=== PATIENT | female | born 1980 | race Caucasian/White ===

== ENCOUNTER 2021-06-13 07:56 | Outpatient (RCR) | payer BC, SELFPAY ==
[2021-06-13] MEDS: ACETAMINOPHEN 325 MG TABLET 650 MG PO (14:37)
[2021-06-13] MEDS: FAMOTIDINE 20 MG TABLET PO (14:37)
[2021-06-13] MEDS: diphenhydrAMINE HCl CAP 25 MG CAPSULE PO (14:38)
[2021-06-13 14:41] VITALS: BP 131/81; PULSE 77; RESP 20; TEMP 36.5; O2SAT 99
[2021-06-13 15:42] VITALS: BP 130/75; PULSE 81; RESP 20; TEMP 36.6; O2SAT 99
== END 2021-06-13 17:00 ==
LOC: AMCINF 07:56
PROVIDERS: PCP Physician Assistant; Visit Provider Internal Medicine Hematology & Oncology
DX: U07.1 COVID-19 (principal)
CPT/HCPCS: A9270; M0243; Q0244

== ENCOUNTER 2022-04-27 15:27 | Emergency (ER) | payer BC, SELFPAY ==
--- NOTE | ~2022-04-27 | XR_ITS ---
XR foot LT min 3V 04/27/2022 15:59 Indication: Left foot and toe pain Procedure: 4 views left foot Comparison: No prior studies for comparison. Findings: There is anatomic alignment. 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 No ac [place] fracture or traumatic malalignment. Lisfranc joint intact. No foreign bodies. Impression: 1: No acute fracture. Reviewed, dictated and finalized at location A. PRESSER Impression: 1: No acute fracture.
[2022-04-27 15:37] VITALS: BP 127/79; PULSE 78; RESP 18; TEMP 36.4; O2SAT 100
--- NOTE | 2022-04-27 16:15 | ED.LOWEXIN ---
HPI - Extremity Injury (Lower) General Chief Complaint: Extremity Injury, Lower Stated Complaint: Lt Ankle Pain Time Seen by Provider: 04/27/22 16:02 Source: patient Mode of arrival: ambulatory Limitations: no limitations History of Present Illness HPI Narrative: Patient presents today with a left foot injury. I week ago when she was sitting on the floor in her home when her foot fell asleep. She went to stand and the foot folded underneath her, she stood on it, injuring it. she has been wrapping, icing, and elevating the foot. She has also been taking ibuprofen with some relief. She does report burning pain to the left 3rd through 5th toes and states she has decreased range of motion in these toes as well. Denies numbness or tingling. Related Data Home Medications Medication Instructions Recorded Confirmed Adderall XR 20 mg PO DAILY 06/13/21 04/27/22 Wellbutrin 300 mg BYMOUTH DAILY 06/13/21 04/27/22 metoprolol succinate 25 mg PO BID 06/13/21 04/27/22 cetirizine 5 mg tablet 5 mg DAILY 04/27/22 04/27/22 Allergies Allergy/AdvReac Type Severity Reaction Status Date / Time mushroom Allergy Vomiting Verified 04/27/22 15:42 dicloxacillin AdvReac Unknown Verified 04/27/22 15:42 Review of Systems Review of Systems: CONSTITUTIONAL: Denies body aches, fever, chills, or sweats. EYES: Denies visual changes, redness, or discharge. ENT: Denies rhinorrhea, congestion, sore throat, or otalgia. CARDIOVASCULAR: Denies chest pain, palpitations, or edema. RESPIRATORY: Denies cough or dyspnea. GASTROINTESTINAL: Denies abdominal pain, nausea, vomiting, or diarrhea. GENITOURINARY: Denies dysuria or hematuria. SKIN: Denies rash, itching, or wounds. MUSCULOSKELETAL: Denies back pain, or myalgia.+ Left foot injury NEUROLOGIC: Denies headache, numbness, tingling. + toe weakness PSYCH: Denies depression or anxiety. PMFSH Comments At time of signature, I have reviewed and agree with nursing past medical, surgical, social and family history unless otherwise noted. Please see nursing chart for further information. There is no relevant family history pertinent to the presenting complaint Exam Narrative: GENERAL: Well-appearing, well-nourished, and in no acute distress. HEAD: Normocephalic, atraumatic. EYES: EOMI. No redness or drainage. Conjunctivae normal. ENT: Mucous membranes pink and moist. NECK: Normal AROM. CHEST: No respiratory distress. EXTREMITIES: left foot: Tenderness along the distal 2nd and 3rd metatarsals. Distal sensation intact in all 5 toes. Capillary refill normal. Pupils normal. Significantly decreased range of motion and strength and toes 3 through 5. SKIN: Warm, dry, no rash. Capillary refill normal. Normal skin turgor. NEURO: No focal deficits. Alert and oriented x3. Gait steady. PSYCH: Normal affect. No signs of depression or anxiety. Course Course Level of Care: Express Care Visit Vital Signs Vital signs: Vital Signs Temperature 97.6 F 04/27/22 15:37 Pulse Rate 78 04/27/22 15:37 Respiratory Rate 18 04/27/22 15:37 Blood Pressure 127/79 04/27/22 15:37 Pulse Oximetry 100 04/27/22 15:37 Oxygen Delivery Room Air 04/27/22 15:37 Temperature 97.6 F 04/27/22 15:37 Pulse Rate 78 04/27/22 15:37 Respiratory Rate 18 04/27/22 15:37 Blood Pressure 127/79 04/27/22 15:37 Pulse Oximetry 100 04/27/22 15:37 Oxygen Delivery Room Air 04/27/22 15:37 Reviewed. Pt has been instructed to follow up with her PCP regarding her elevated blood pressure today. MDM - Extremity Injury (Lower) Differential Diagnosis Differential diagnosis: Likely other ( Foot fracture, foot strain, tendon injury) Imaging Data Radiologist's impression: ITS Impressions Foot X-Ray 04/27/22 16:03 Impression: 1: No acute fracture. Critical Care Time Critical Care Time Critical Care Time: No Discharge Plan Discharge Clinical Impression: Strain of foot, left
== END 2022-04-27 16:25 | disposition home or self-care (01) ==
PROVIDERS: Emergency Provider Nurse Practitioner; PCP Internal Medicine
DX: S96.912A Strain of unspecified muscle and tendon at ankle and foot level, left foot, initial encounter (principal); T14.90XA Injury, unspecified, initial encounter
CPT/HCPCS: 73630; 99213; G0463

== ENCOUNTER → 2023-01-24 08:44 | Outpatient (CLI) | payer BC, SELFPAY ==
--- NOTE | ~2023-01-24 | MMUS_ITS ---
EXAMINATION: MM diagnostic radha BI w kath, US breast BI limited HISTORY: Palpable lumps in the upper outer quadrants of the breasts TECHNIQUE: Craniocaudal, mediolateral, and mediolateral oblique 3-D tomosynthesis images of the rebecca ts were performed and synthetic 2-D images were generated. CAD analysis was submitted and interpreted . High resolution limited bilateral breast ultrasound was performed. COMPARISON: None, baseline BREAST PARENCHYMAL COMPOSITION: The breasts are heterogeneously dense, which may obscure small masses . FINDINGS: MAMMOGRAPHIC FINDINGS: Right breast: There is an approximately 3.8 cm obscured, oval, equal density mass in the middle third of the upper outer quadrant of the breast at the 10:00 location 5 cm from the nipple corresponding t o the palpable abnormality of concern. A 12 mm mass with similar sonographic features is seen just an teriorly at the 10:00 location 3.5 cm from the nipple. No suspicious calcification or architectural d istortion are identified. Left breast: There is a 1.5 cm oval, obscured, equal density mass in the anterior third of the upper outer quadrant of the breast at the 2:00 location, 4 cm from the nipple. No suspicious calcification or architectural distortion are identified. ULTRASOUND: Right breast: There are multiple cysts of the right breast including a 3.6 cm cyst corresponding to t he palpable abnormality of concern in largest mammographically detected mass. There is a 1.4 x 1.0 cm complex cystic and solid right breast mass at the 12:00 location 2 cm from the nipple with posterior acoustic enhancement and no internal vascularity. Left breast: There are multiple cysts in the upper outer quadrant of the left breast. There is a clus ter of cysts at the 12:00 location 2 cm from the nipple measuring 2.8 cm in aggregate. IMPRESSION: 1. Multiple bilateral breast cysts corresponding to the areas of palpable concern. One complex cyst a t the 12:00 location of the right breast 2 cm from the nipple may reflect a complicated cyst. 2. Recommend 6 month follow-up targeted right breast ultrasound. BI-RADS category 3, probably benign findings. Reviewed, dictated and finalized at location A. IMPRESSION: 1. Multiple bilateral breast cysts corresponding to the areas of palpable filiberto rn. One complex cyst at the 12:00 location of the right breast 2 cm from the ni pple may reflect a complicated cyst. 2. Recommend 6 month follow-up targeted right breast ultrasound. BI-RADS category 3, probably benign findings.
== END ==
DX: N63.10 Unspecified lump in the right breast, unspecified quadrant (principal); R92.8 Other abnormal and inconclusive findings on diagnostic imaging of breast
CPT/HCPCS: 76642; 77062; 77066; G0279

== ENCOUNTER 2023-10-02 08:18 | Outpatient (CLI) | payer BC, SELFPAY ==
--- NOTE | ~2023-10-02 | US_ITS ---
US breast RT limited DATE: 10/02/2023 08:36 INDICATION: Short-term follow-up of complex lesion at 12:00 2 cm from nipple TECHNIQUE: Real-time and color-flow imaging related to the right breast 12:00 2 cm from nipple COMPARISON: 01/24/2023 Limited bilateral breast ultrasound examination FINDINGS: 5.3 x 7.8 x 11 mm simple cyst is noted at 12:00 2 cm from the nipple. There is through gutiérrez smission posterior enhancement. IMPRESSION: BI-RADS category 2: Benign. Benign simple cyst at 12:00 2 cm from nipple Reviewed, dictated and finalized at [facility]. Reviewed, dictated and finalized at location B. IMPRESSION: BI-RADS category 2: Benign. Benign simple cyst at 12:00 2 cm from n ipple
== END 2023-10-02 08:19 ==
LOC: MICIMG 08:19
PROVIDERS: PCP Registered Nurse; Visit Provider Registered Nurse
DX: N60.01 Solitary cyst of right breast (principal)
CPT/HCPCS: 76642

== ENCOUNTER 2024-06-26 09:06 | Outpatient (CLI) | payer BC, SELFPAY ==
--- NOTE | ~2024-06-26 | MR_ITS ---
EXAMINATION: MR lumbar spine wo con DATE: 06/26/2024 09:28 INDICATION: Low back pain. Left leg pain. TECHNIQUE: Magnetic resonance imaging (MRI) of the lumbar spine was performed without intravenous con trast. Sequences included sagittal T2-weighted FSE, sagittal T2-weighted FS FSE, sagittal T1-weighted FSE, and axial T2-weighted FSE. COMPARISON: Lumbar spine MRI 09/23/2014 FINDINGS: Alignment is normal. There are Schmorl's nodes at multiple levels. There is mildly decrease d disc height at L4-L5 and L5-S1. The distal spinal cord signal intensity is normal. The conus medull gera is at L1. The following disc levels are specifically discussed: L1-L2: The disc does not extend beyond the endplate margin. There is mild bilateral facet joint osteo arthritis. There is no neural foraminal stenosis. There is no central canal stenosis. L2-L3: The disc is mildly bulging. There is moderate right and mild left facet joint osteoarthritis. There is mild bilateral neural foraminal stenosis. There is mild central canal stenosis. L3-L4: The disc is mildly bulging. There is mild bilateral facet joint osteoarthritis. There is mild bilateral neural foraminal stenosis. There is no central canal stenosis. L4-L5: The disc is bulging with superimposed left central extrusion. There is moderate right and salo re left facet joint osteoarthritis. There is mild right and moderate left neural foraminal stenosis. There is mild central canal stenosis. There is moderate stenosis of left lateral recess. L5-S1: The disc is bulging and has an annular fissure. There is mild bilateral facet joint osteoarthr itis. There is mild bilateral neural foraminal stenosis. There is mild central canal stenosis. IMPRESSION: 1. Moderate spondylosis at L4-L5 and mild spondylosis at other levels, worsened from 09/23/2014. Reviewed, dictated and finalized at location A. R REPAIRER
== END 2024-06-26 09:07 | disposition home or self-care (01) ==
PROVIDERS: PCP Registered Nurse; Visit Provider Registered Nurse
DX: M54.42 Lumbago with sciatica, left side (principal); G89.29 Other chronic pain; M47.896 Other spondylosis, lumbar region
CPT/HCPCS: 72148